=== PATIENT | female | born 2000 | race African-American/Black ===

== ENCOUNTER 2021-06-22 11:35 | Emergency (ER) | payer SELFPAY ==
[~2021-06-22] VITALS: Ht 165.1 cm; Wt 58.0 kg
[2021-06-22 12:31] VITALS: BP 124/68
== END 2021-06-22 13:29 | disposition left against medical advice (07) ==
LOC: ER 11:35
DX: Z53.21 Procedure and treatment not carried out due to patient leaving prior to being seen by health care provider (principal)